=== PATIENT | female | born 1970 | race Caucasian/White ===

== ENCOUNTER → 2016-03-18 | Outpatient (CLI) | payer OTHER ==
--- NOTE | 2016-03-18 11:38 | DX ---
Right Foot - 3 views Indication: Forefoot pain. Technique: Weightbearing AP, oblique, and lateral views. Comparison: None. Findings: The normally mineralized bones are anatomically aligned. No fracture, periostitis or bone l esion. Mild osteoarthritis of the first metatarsophalangeal joint is evidenced by joint space narrowi ng and marginal osteophytes. Stigmata of bunionectomy and first metatarsal rotational osteotomy inclu estrellita minimal bony deformity and 2 cortical screws seated in the distal first metatarsal. The remainder of the joint spaces are well preserved. Impression: 1. Mild osteoarthritis of the first metatarsophalangeal joint. 2. Stigmata of remote first metatarsal rotational osteotomy.
== END ==
LOC: BMCIMAGING 11:01
PROVIDERS: ATTEND Podiatrist Foot & Ankle Surgery
DX: M79.671 Pain in right foot (principal); M19.071 Primary osteoarthritis, right ankle and foot

== ENCOUNTER → 2016-03-19 | Outpatient (CLI) | payer OTHER ==
--- NOTE | 2016-03-19 10:23 | MA ---
Diagnostic Digital Mammogram With iCAD Analysis Clinical Indications: Evaluate palpable area in the right breast. Follow up probably benign microcalc ifications on the left side. Her paternal grandmother was diagnosed with breast cancer in her 60s. Technique: Standard cephalocaudal projections are obtained. Digital breast tomosynthesis was performe d in the MLO projection with reconstruction at 1.0 mm slice thickness and composite MLO views reconst ructed. A marker is placed on the palpable area on the right and a true lateral is performed. Additio jose r craniocaudal and true lateral magnification views are performed on the left side for assessment of the microcalcifications. This examination is processed by the iCAD computer aided detection syste m. Comparison: July 2015, September 2014, June 2010. Breast density: Type C: Heterogeneously dense. Findings: CAD was reviewed. There is a 2 cm opacity in the right breast at the 9 o'clock position cor responding to the palpable area. The small cluster of microcalcifications in the upper outer left ana ast are again identified. They are somewhat amorphic on craniocaudal view and demonstrate curvilinear characterization on the true lateral view consistent with benign milk of calcium calcification. I velez ve reviewed this mammogram with Dr. Arce and he is in agreement with the assessment concerning the microcalcifications. Impression: 1. Palpable area right breast requires further evaluation, BI-RADS 0. 2. Benign left breast microcalcifications, BI-RADS 2. Recommendation: 1. Targeted right breast ultrasound which will be subsequently performed today. 2. Return to routine mammographic screening with reference to the left breast calcifications. A verbal report was given to the patient. [facility] will send a result letter to the patient. Negative mammography should not preclude additional workup of a clinically suspicious finding. The patient's information is entered into a reminder system with a target due date for her next mammo gram. [email or web address]
--- NOTE | 2016-03-19 12:09 | US ---
Right Breast Ultrasound History: Evaluate palpable area at the 9 o'clock position of the right breast. Technique: Longitudinal and transverse images were obtained utilizing a 15 MHz transducer. Color Dop pler evaluation is employed for assessment of vascularity. Study is interpreted in conjunction with diagnostic mammography performed earlier today. Findings: The palpable area at the 9 o'clock position of the right breast is easily identified on phy sical examination. Sonographic interrogation demonstrates a 1.9 x 1.4 cm simple cyst. Prominent fibro glandular elements are noted in the region and several other small simple cysts are seen. No suspicio us solid abnormality is identified. Additionally, sonographic interrogation was performed in the upper outer left breast where fibrocysti c changes are noted some of which are associated with calcifications consistent with benign milk of c alcium calcification noted on diagnostic mammography.. Impression: Benign findings when considering mammographic and sonographic assessment, BI-RADS 2. Recommendation: Resume routine mammographic screening in one year as long as physical examination is stable. Findings and follow up recommendations were reviewed with the patient in detail. [facility] will send a result letter to the patient.
== END ==
LOC: FIMAGING 08:36
PROVIDERS: ATTEND Physician Assistant Medical
DX: Z12.39 Encounter for other screening for malignant neoplasm of breast (principal); N63 Unspecified lump in breast; R92.0 Mammographic microcalcification found on diagnostic imaging of breast
CPT/HCPCS: G0204; G0279

== ENCOUNTER → 2016-03-30 | Outpatient (CLI) | payer OTHER ==
--- NOTE | 2016-03-30 11:10 | DX ---
Right foot, 3 views. History: S/P CHEILECTOMY, NEURECTOMY, AND HARDWARE REMOVAL Comparison examination: March 18, 2016. Findings: There has been interval removal of 2 metallic screws from the distal right first metatars al from prior examination, without hardware complication. Moderate degenerative joint space narrowing of the first metatarsal phalangeal joint is present. Study otherwise unremarkable. Impression: Status post hardware removal from the distal right first metatarsal. Moderate osteoarthr itis right first metatarsal phalangeal joint.
== END ==
LOC: BMCIMAGING 10:09
PROVIDERS: ATTEND Podiatrist Foot & Ankle Surgery
DX: Z47.2 Encounter for removal of internal fixation device (principal); M19.071 Primary osteoarthritis, right ankle and foot

== ENCOUNTER → 2016-05-03 | Outpatient (CLI) | payer OTHER | LOC: BMCIMAGING 15:14 | PROVIDERS: ATTEND Podiatrist Foot & Ankle Surgery | DX: Z09 Encounter for follow-up examination after completed treatment for conditions other than malignant neoplasm (principal); Z98.890 Other specified postprocedural states ==

== ENCOUNTER → 2017-11-23 | Outpatient (CLI) | payer OTHER | LOC: FIMAGING 15:45 | PROVIDERS: ATTEND Physician Assistant Medical | DX: Z12.31 Encounter for screening mammogram for malignant neoplasm of breast (principal); N60.01 Solitary cyst of right breast ==